=== PATIENT | male | born 1950 | race Caucasian/White ===

== ENCOUNTER 2017-04-08 16:43 | Emergency (ER) | payer MEDICARE, MEDICAID ==
[~2017-04-08] VITALS: Ht 175.3 cm; Wt 75.0 kg
[2017-04-08] MEDS ORDERED: KETOROLAC 30MG/ML VIAL IM ONE (17:45)
[2017-04-08 18:27] LABS: HEMATOCRIT. 43.1 % (42.0-52.0); HEMOGLOBIN. 14.8 g/dL (14.0-18.0); MEAN CORPUSCULAR HEMOGLOBIN 28.8 pg (28.0-32.0); MEAN CORPUSCULAR VOLUME 83.7 fL (80.0-94.0); MEAN PLATELET VOLUME 9.4 fl (7.4-10.4); PLATELET 207 x1000/uL (130-400); RED BLOOD CELL COUNT 5.15 mill/uL (4.7-6.1); RED CELL DISTRIBUTION WIDTH 12.2 % (11.6-14.6)
[2017-04-08 18:30] LABS: CHLORIDE 96 mEq/L (98-107)
[2017-04-08 18:33] LABS: CARBON DIOXIDE 30 mEq/L (21-32)
[2017-04-08 18:51] LABS: PLATELET ESTIMATE NORMAL
[2017-04-08] MEDS ORDERED: ACETAMINOPHEN 325MG TABLET PO ONE (21:00)
[2017-04-08 21:11] VITALS: BP 120/84
== END 2017-04-08 21:37 | disposition home or self-care (01) ==
LOC: ER 17:00
DX: B34.9 Viral infection, unspecified (principal); I10 Essential (primary) hypertension; E11.9 Type 2 diabetes mellitus without complications
CPT/HCPCS: 36415; 71010; 80053; 85025; 87804; 96372; 99285; J1885